=== PATIENT | female | born 1990 | race Caucasian/White ===

== ENCOUNTER 2016-12-15 18:28 | Emergency (ER) | payer BC ==
--- NOTE | 2016-12-15 18:53 | ED ---
- HPI Summary HPI Summary: Patient is 9 weeks 3 days and has a known small abdominal hernia. Yesterday she sneezed and felt a tearing sensation at the hernia. She presents today asking what she can do to prevent the area from tearing more. She called her branch or department chief librarian who recommended altering how she picks up her 30 lb son. She denies noticing obvious swelling when laying down and the small area is easily reduced. There is no discoloration, fever, abdominal pain. - History of Current Complaint Chief Complaint: EDOBProblems Stated Complaint: 9 WEEKS PREG , ABD PAIN Time Seen by Provider: 12/15/16 18:36 Hx Obtained From: Patient Chief Complaint: Other: - hernia Onset/Duration: Started Days Ago, Atraumatic, Still Present Timing: Constant Severity: Mild - when she sneezed Current Severity: None Pain Intensity: 0 Location of Pain: Other: - periumbilical Character: Dull Aggravating Factors: Coughing Alleviating Factors: Other: - bracing Associated Signs and Symptoms: Positive: Negative - Assessment Hx Now: Yes - Unsure. Took Plan B on 07/27/14 - Allergies/Home Medications Allergies/Adverse Reactions: Allergies Allergy/AdvReac Type Severity Reaction Status Date / Time No Known Allergies Allergy Verified 08/02/14 08:23 PMH/Surg Hx/FS Hx/Imm Hx Endocrine/Hematology History: Denies: Hx Diabetes, Hx Thyroid Disease Cardiovascular History: Denies: Hx Hypertension Respiratory History: Reports: Hx Asthma - stress induced as a child Denies: Hx Chronic Obstructive Pulmonary Disease (COPD) GI History: Denies: Hx Ulcer - Surgical History Surgery Procedure, Year, and Place: wisdom teeth extraction Infectious Disease History: Reports: Hx Shingles - had when she was 17 yoa Denies: Hx Clostridium Difficile, Hx Hepatitis, Hx Human Immunodeficiency Virus (HIV), Hx of Known/Suspected MRSA, Hx Tuberculosis, Hx Known/Suspected VRE , Hx Known/Suspected VRSA, History Other Infectious Disease, Traveled Outside the [place] in Last 30 Days - Family History Known Family History: Positive: None - Social History Occupation: Unemployed Lives: With Family Alcohol Use: Occasionally Substance Use Type: Reports: None Smoking Status (MU): Never Smoked Tobacco Review of Systems Negative: Fever Positive: Abdominal Pain - mild discomfort when she sneezed All Other Systems Reviewed And Are Negative: Yes Physical Exam - Physical Exam Triage Information Reviewed: Yes Vital Signs Reviewed: Yes Appearance: Positive: Well-Appearing, No Pain Distress, Well-Nourished Skin: Positive: Warm, Skin Color Reflects Adequate Perfusion, Dry, Soft Head/Face: Positive: Normal Head/Face Inspection Eyes: Positive: EOMI, LEODAN, Conjunctiva Clear ENT: Positive: Hearing grossly normal Respiratory/Lung Sounds: Positive: Breath Sounds Present Cardiovascular: Positive: RRR Abdomen Description: Positive: Nontender - grape sized reducible hernia inferior to the umbilicus, Soft. Negative: CVA Tenderness (R), CVA Tenderness ( L), Distended, Guarding Bowel Sounds: Positive: Present Musculoskeletal: Negative: Edema Left, Edema Right Neurological: Positive: Sensory/Motor Intact, Alert, Oriented to Person Place, Time, NV Bundle Intact Distally, Normal Gait Psychiatric: Positive: Affect/Mood Appropriate AVPU Assessment: Alert Diagnostics - Vital Signs Vital Signs Temp Pulse Resp BP Pulse Ox 12/15/16 18:30 98.9 F 75 15 121/63 100 - Laboratory Lab Statement: Any lab studies that have been ordered have been reviewed, and results considered in the medical decision making process. Course/Dx - Differential Diagnosis/HQI/PQRI: Preeclampsia, Early , Pre-term Labor, Vaginal Bleeding - Diagnoses Provider Diagnoses: Hernia Discharge - Discharge Plan Condition: Stable Disposition: HOME Patient Education Materials: Umbilical Hernia (ED) Referrals: Cierra Cortes MD [Primary Care Provider] - Additional Instructions: Please be in touch with your team for further concerns and follow-up. Return to the emergency department if symptoms worsen.
[2016-12-15 18:56] VITALS: BP 107/67
== END 2016-12-15 18:55 | disposition home or self-care (01) ==
LOC: ED 18:28
DX: O26.91 Pregnancy related conditions, unspecified, first trimester (principal); Z3A.09 9 weeks gestation of pregnancy; K46.9 Unspecified abdominal hernia without obstruction or gangrene; R10.9 Unspecified abdominal pain; R05 Cough
CPT/HCPCS: 99281

== ENCOUNTER 2018-12-26 09:17 | Emergency (ER) | payer BC ==
[2018-12-26 09:59] VITALS: BP 91/62
--- NOTE | 2018-12-26 10:08 | UC ---
Throat Pain/Nasal Herminio HPI - HPI Summary HPI Summary: sore throat x 1 week no cough , no nasal congestion , right side ear pain swollen neck glands no fever, + chills, body aches, fatigue concern about [place] - History of Current Complaint Chief Complaint: UCRespiratory Stated Complaint: THROAT,BODYACHES,TIRED Time Seen by Provider: 12/26/18 10:00 Hx Obtained From: Patient Hx Last Menstrual Period: prior to childbirth- 15 months ago ?: No Onset/Duration: Gradual Onset, Lasting Days - 7, Still Present Severity: Moderate Pain Intensity: 4 Cough: None Associated Signs & Symptoms: Negative: Dysphagia, FB Sensation, Drooling, Wheezing, Hoarseness, Sinus Discomfort, Nasal Discharge, Fever, Vomiting, Rash - Allergies/Home Medications Allergies/Adverse Reactions: Allergies Allergy/AdvReac Type Severity Reaction Status Date / Time morphine AdvReac "JITTERY, Verified 12/26/18 09:52 AND MUSCLES TENSE" Home Medications: Home Medications Ibuprofen TAB* [Advil TAB*] 400 mg PO Q6H PRN 12/26/18 [History Confirmed ] PMH/Surg Hx/FS Hx/Imm Hx Previously Healthy: Yes - Surgical History Surgical History: Yes Surgery Procedure, Year, and Place: wisdom teeth extraction - Family History Known Family History: Positive: None Negative: Diabetes - Social History Alcohol Use: Rare Substance Use Type: None Smoking Status (MU): Never Smoked Tobacco Review of Systems All Other Systems Reviewed And Are Negative: Yes Constitutional: Positive: Chills, Fatigue Skin: Positive: Negative Eyes: Positive: Negative ENT: Positive: Sore Throat. Negative: Nasal Discharge Respiratory: Negative: Cough Cardiovascular: Positive: Negative Is Patient Immunocompromised?: No Physical Exam Triage Information Reviewed: Yes Appearance: Well-Appearing, No Pain Distress, Well-Nourished Vital Signs: Initial Vital Signs Temp 98.1 F 12/26/18 09:53 Pulse 83 12/26/18 09:53 Resp 16 12/26/18 09:53 BP 91/62 12/26/18 09:53 Pulse Ox 100 12/26/18 09:53 Vital Signs Reviewed: Yes Eye Exam: Normal Eyes: Positive: Conjunctiva Clear ENT: Positive: Normal ENT inspection, Hearing grossly normal, Pharynx normal Neck: Positive: Supple, Nontender, No Lymphadenopathy Respiratory: Positive: Chest non-tender, Lungs clear, Normal breath sounds Cardiovascular: Positive: RRR, No Murmur, Pulses Normal Abdominal Exam: Normal Abdomen Description: Positive: Nontender, No Organomegaly, Soft. Negative: CVA Tenderness (R), CVA Tenderness (L), Distended, Guarding Skin Exam: Normal Throat Pain/Nasal Course/Dx - Differential Dx/Diagnosis Provider Diagnosis: Pharyngitis Discharge - Sign-Out/Discharge Documenting (check all that apply): Patient Departure All imaging exams completed and their final reports reviewed: No Studies - Discharge Plan Condition: Stable Disposition: HOME Patient Education Materials: Pharyngitis (ED) Referrals: Kalie Kelly DO [Primary Care Provider] - 7 Days Additional Instructions: will check for mono please call the office in one day for the results - Billing Disposition and Condition Condition: STABLE Disposition: Home
[2018-12-27 10:45] LABS: EBV Capsid Ag IgG Ab Positive (Negative); EBV Capsid Ag IgM Ab Negative (Negative); Epstein-Barr Nuclear Antigen Positive (Negative)
== END 2018-12-26 10:40 | disposition home or self-care (01) ==
LOC: UCCORT 09:17
DX: J02.9 Acute pharyngitis, unspecified (principal); Z88.5 Allergy status to narcotic agent
CPT/HCPCS: 36415; 86308; 86664; 86665; 87651; 99211; G0463

== ENCOUNTER 2019-10-27 16:49 | Emergency (ER) | payer BC ==
[2019-10-27 18:17] LABS: ABS Basophils 0.1 10^3/ul (0-0.2); ABS Eosinophils 0.1 10^3/ul (0-0.6); ABS Lymphocytes 1.7 10^3/ul (1.0-4.8); ABS Monocytes 0.6 10^3/ul (0-0.8); ABS Neutrophils 6.2 10^3/ul (1.5-7.7); Eosinophil % 0.7 %; Hematocrit 36 % (35-47); Hemoglobin 12.3 g/dL (12.0-16.0); Lymphocyte % 19.8 %; Mean Corpuscular HGB Conc 34 g/dL (31-36); Mean Corpuscular Hemoglobin 30 pg (27-31); Mean Corpuscular Volume 88 fL (80-97); Mean Platelet Volume 7.9 fL (7.4-10.4); Platelet Count 351 10^3/uL (150-450); Red Blood Count 4.12 10^6 /uL (3.70-4.87); Red Cell Distribution Width 14 % (10-15); White Blood Count 8.7 10^3/uL (3.5-10.8)
[2019-10-27 18:33] LABS: ALT 12 U/L (7-52); AST 15 U/L (13-39); Albumin 4.5 g/dL (3.2-5.2); Albumin/Globulin Ratio 1.6 (1-3); Alkaline Phosphatase 53 U/L (34-104); Anion Gap 8 mmol/L (2-11); BUN/Creatinine Ratio 17.5 (8-20); Blood Urea Nitrogen 14 mg/dL (6-24); CO2 Carbon Dioxide 25 mmol/L (22-32); Calcium 9.3 mg/dL (8.6-10.3); Chloride 104 mmol/L (101-111); EGFR African American 103.3 (>60); EGFR Non-African American 85.4 (>60); Globulin 2.8 g/dL (2-4); Glucose 95 mg/dL (70-100); Potassium 4.3 mmol/L (3.5-5.0); Sodium 137 mmol/L (135-145); Total Protein 7.3 g/dL (6.4-8.9)
[2019-10-27 19:08] LABS: Urine Appearance Clear; Urine Bilirubin Negative (Negative); Urine Blood 1+ (Negative); Urine Color Yellow; Urine Glucose Negative (Negative); Urine Ketones Trace (Negative); Urine Nitrite Negative (Negative); Urine Protein Negative (Negative); Urine Specific Gravity 1.008 (1.010-1.030); Urine Urobilinogen Negative (Negative)
[2019-10-27 19:11] LABS: Urine Bacteria Absent (Absent); Urine Red Blood Cell Trace(0-2/hpf) (Absent); Urine Squamous Epithelial Cell Present (Absent); Urine White Blood Cell Absent (Absent)
[2019-10-27 20:37] LABS: HCG Pregnancy < 0.60 mIU/mL
--- NOTE | 2019-10-27 20:51 | ED ---
Abdominal Pain/Female - HPI Summary HPI Summary: The patient is a 29 y/o F presenting to [facility] with cc of right-sided abdominal pain onset yesterday and worsening into today. She reports that she has been experiencing nausea for the last week. On 10/23/2019 into 10/24/2019, she began having vaginal bleeding with two large menstrual cups overflowing in less than 40 minutes, which continued for a few hours but has since improved with normal blood flow. Yesterday, she developed dull abdominal pain in the right side worst in the RUQ, which has continued and worsened today with bloating. She additionally c/o dark brown stools without blood. She denies fevers or chills. Symptoms rated 6/10 in severity. She notes that she has suffered from severe menstrual cycles throughout her life, and she occasionally has accompanying GI symptoms. Not currently . No abdominal surgeries. Noted umbilical hernia feeling slightly different than usual but not significantly abnormal. PMHx: two vaginal births, asthma. Nonsmoker, rare EtOH, no substance use. Medications reviewed. Allergies noted. Home Medications Medication Instructions Recorded Confirmed Type Sertraline* [Zoloft*] 100 mg PO QAM 04/16/18 10/27/19 History Ibuprofen TAB* [Advil TAB*] 400 mg PO Q6H PRN 12/26/18 10/27/19 History Multivitamins/Minerals TAB* [Thera 1 tab PO DAILY 10/27/19 10/27/19 History M Plus TAB*] - History of Current Complaint Chief Complaint: EDAbdPain Stated Complaint: ABD PAIN/DARK STOOL PER PT Time Seen by Provider: 10/27/19 20:05 Hx Obtained From: Patient Hx Last Menstrual Period: prior to childbirth- 15 months ago ?: No - tested four days ago Onset/Duration: Lasting Hours, Still Present Timing: Constant Severity Initially: Mild Severity Currently: Moderate Pain Intensity: 6 Pain Scale Used: 0-10 Numeric Location: Discrete At: RUQ Radiates: No Character: Sharp, Dull Aggravating Factor(s): Nothing Alleviating Factor(s): Nothing Associated Signs and Symptoms: Positive: Vaginal Bleeding - hemorrhaging 2019 with improvement, Nausea, Diarrhea - dark, brown tarry, Other: - abdominal bloating; Negative: chills. Negative: Fever, Blood in Stool Allergies/Adverse Reactions: Allergies Allergy/AdvReac Type Severity Reaction Status Date / Time morphine AdvReac "JITTERY, Verified 12/26/18 09:52 AND MUSCLES TENSE" Home Medications: Home Medications Sertraline* [Zoloft*] 100 mg PO QAM 04/16/18 [History Confirmed 10/27/19] Ibuprofen TAB* [Advil TAB*] 400 mg PO Q6H PRN 12/26/18 [History Confirmed ] Multivitamins/Minerals TAB* [Thera M Plus TAB*] 1 tab PO DAILY 10/27/19 [ History Confirmed 10/27/19] PMH/Surg Hx/FS Hx/Imm Hx Endocrine/Hematology History: Denies: Hx Diabetes, Hx Thyroid Disease Cardiovascular History: Denies: Hx Hypertension, Hx Pacemaker/ICD Respiratory History: Reports: Hx Asthma - stress induced as a child Denies: Hx Chronic Obstructive Pulmonary Disease (COPD) GI History: Reports: Hx Irritable Bowel Denies: Hx Ulcer Sensory History: Reports: Hx Contacts or Glasses - READING GLASSES Denies: Hx Hearing Aid Opthamlomology History: Reports: Hx Contacts or Glasses - READING GLASSES Psychiatric History: Reports: Hx Anxiety - ON MEDICATION FOR, Hx Depression - ON MEDICATION FOR - Surgical History Surgical History: Yes Surgery Procedure, Year, and Place: wisdom teeth extraction Hx Anesthesia Reactions: No Infectious Disease History: No Infectious Disease History: Reports: Hx Shingles - had when she was 17 yoa Denies: Hx Clostridium Difficile, Hx Hepatitis, Hx Human Immunodeficiency Virus (HIV), Hx of Known/Suspected MRSA, Hx Tuberculosis, Hx Known/Suspected VRE , Hx Known/Suspected VRSA, History Other Infectious Disease, Traveled Outside the [place] in Last 30 Days - Family History Known Family History: Negative: Cardiac Disease, Hypertension, Diabetes - Social History Alcohol Use: Rare Hx Substance Use: No Substance Use Type: Reports: None Hx Tobacco Use: No Smoking Status (MU): Never Smoked Tobacco Review of Systems Negative: Fever, Chills Positive: Abdominal Pain - right side worst in upper, Diarrhea, Nausea, Other - abdominal bloating, dark brown tarry stools; Negative: blood in stool All Other Systems Reviewed And Are Negative: Yes Physical Exam - Summary Physical Exam Summary: Constitutional: Well-developed, Well-nourished, Alert. (-) Distressed Skin: Warm, Dry HENT: Normocephalic; Atraumatic Eyes: Conjunctiva normal Neck: Musculoskeletal ROM normal neck. (-) JVD, (-) Stridor, (-) Nuchal rigidity Cardio: Rhythm regular, rate normal, Heart sounds normal; Intact distal pulses; Radial pulses are 2+ and symmetric. (-) Murmur Pulmonary/Chest wall: Effort normal. (-) Respiratory distress, (-) Wheezes, (-) Rales Abd: Soft, (+) RUQ tenderness, (-) Distension, (-) Guarding, (-) Rebound Musculoskeletal: (-) Edema Lymph: (-) Cervical adenopathy Neuro: Alert, Oriented x3 Psych: Mood and affect Normal Triage Information Reviewed: Yes Vital Signs On Initial Exam: Initial Vitals Temp Pulse Resp BP Pulse Ox 97.8 F 67 18 147/84 98 10/27/19 16:50 10/27/19 16:50 10/27/19 16:50 10/27/19 16:50 10/27/19 16:50 Vital Signs Reviewed: Yes Procedures - Sedation Patient Received Moderate/Deep Sedation with Procedure: No Diagnostics - Vital Signs Vital Signs Temp Pulse Resp BP Pulse Ox 10/27/19 18:39 99.6 F 82 18 105/81 98 10/27/19 16:50 97.8 F 67 18 147/84 98 - Laboratory Lab Results: Lab Results 10/27/19 10/27/19 10/27/19 Range/Units 18:09 18:09 18:50 WBC 8.7 (3.5-10.8) 10^3/uL RBC 4.12 (3.70-4.87) 10^6 /uL Hgb 12.3 (12.0-16.0) g/dL Hct 36 (35-47) % MCV 88 (80-97) fL MCH 30 (27-31) pg MCHC 34 (31-36) g/dL RDW 14 (10-15) % Plt Count 351 (150-450) 10^3/uL MPV 7.9 (7.4-10.4) fL Neut % (Auto) 72.0 % Lymph % (Auto) 19.8 % Stephens % (Auto) 6.8 % Eos % (Auto) 0.7 % Baso % (Auto) 0.7 % Absolute Neuts (auto) 6.2 (1.5-7.7) 10^3/ul Absolute Lymphs (auto) 1.7 (1.0-4.8) 10^3/ul Absolute Monos (auto) 0.6 (0-0.8) 10^3/ul Absolute Eos (auto) 0.1 (0-0.6) 10^3/ul Absolute Basos (auto) 0.1 (0-0.2) 10^3/ul Absolute Nucleated RBC 0.0 10^3/ul Nucleated RBC % 0.0 Sodium 137 (135-145) mmol/L Potassium 4.3 (3.5-5.0) mmol/L Chloride 104 (101-111) mmol/L Carbon Dioxide 25 (22-32) mmol/L Anion Gap 8 (2-11) mmol/L BUN 14 (6-24) mg/dL Creatinine 0.80 (0.51-0.95) mg/dL Est GFR ( Amer) 103.3 (>60) Est GFR (Non-Af Amer) 85.4 (>60) BUN/Creatinine Ratio 17.5 (8-20) Glucose 95 (70-100) mg/dL Calcium 9.3 (8.6-10.3) mg/dL Total Bilirubin 0.30 (0.2-1.0) mg/dL AST 15 (13-39) U/L ALT 12 (7-52) U/L Alkaline Phosphatase 53 (34-104) U/L Total Protein 7.3 (6.4-8.9) g/dL Albumin 4.5 (3.2-5.2) g/dL Globulin 2.8 (2-4) g/dL Albumin/Globulin Ratio 1.6 (1-3) Beta HCG, Quant < 0.60 mIU/mL Urine Color Yellow Urine Appearance Clear Urine pH 7.0 (5-9) Ur Specific [place] 1.008 L (1.010-1.030) Urine Protein Negative (Negative) Urine Ketones Trace A (Negative) Urine Blood 1+ A (Negative) Urine Nitrate Negative (Negative) Urine Bilirubin Negative (Negative) Urine Urobilinogen Negative (Negative) Ur Leukocyte Esterase Negative (Negative) Urine WBC (Auto) Absent (Absent) Urine RBC (Auto) Trace(0-2/hpf) (Absent) Ur Squamous Epith Cells Present A (Absent) Urine Bacteria Absent (Absent) Urine Glucose Negative (Negative) Result Diagrams: 10/27/19 18:09 10/27/19 18:09 Lab Statement: Any lab studies that have been ordered have been reviewed, and results considered in the medical decision making process. Abdominal Pain Fem Course/Dx - Course Course Of Treatment: 29 y/o F p/w RUQ pain/ R sided abd pain. - patient reports pain w menses and this could be related to that as she is currently on cycle. Hb stable (had reported heavy bleeding earlier, now resolved). LFTs and bili WNL. No e/o infection on labwork. Denies blood in stool. Preg neg. D/w patient US RUQ for biliary pathology although given normal LFTs/bili and lack of typical biliary colic symptoms, my suspicion is lower. Will sign out to Dr. Ohara pending images. - Diagnoses Provider Diagnoses: RUQ abdominal pain, Nausea Discharge ED - Sign-Out/Discharge Documenting (check all that apply): Sign-Out Patient Signing out patient TO: Cora Ohara - Patient is a sign-out to Dr. Cora Ohara MD, at 2200 on 10/27/2019, pending Gallbladder US and disposition. - Discharge Plan Condition: Stable Disposition: HOME Patient Education Materials: Acute Abdominal Pain (ED) Referrals: Kalie Kelly DO [Primary Care Provider] - Additional Instructions: You were seen in the emergency department for sided abdominal pain, your labs did not show any evidence of infection. If any studies were not completed at the time of discharge you will be called with the relevant results. Please follow up with your primary care doctor in the next 2-3 days and return to the emergency department for worsening pain, fevers, or concerning symptoms. It was a pleasure taking care of you today. - Billing Disposition and Condition Condition: STABLE Disposition: Home - Attestation Statements Document Initiated by Zack: Yes Documenting Scribe: Evita Diaz Provider For Whom Zack is Documenting (Include Credential): Dr. Bam Cadet MD Scribe Attestation: Evita Avery scribed for Dr. Bam Cadet MD on 10/29/19 at 1052. Scribe Documentation Reviewed: Yes Provider Attestation: The documentation as recorded by the scribe, Evita Diaz accurately reflects the service I personally performed and the decisions made by me, Dr. Bam Cadet MD Status of Zack Document: Viewed
--- NOTE | 2019-10-27 22:26 | ED ---
Progress - Progress Note Progress Note: Pt is a signout from Dr. Cadet at 2200 on 10/27/19 pending ultrasound of her abdomen. - Results/Orders Results/Orders: Abdominal ultrasound: No acute findings. No shadowing gallstones. ED physician has reviewed this report. Course/Dx - Diagnoses Provider Diagnoses: RUQ abdominal pain, Nausea Discharge ED - Sign-Out/Discharge Documenting (check all that apply): Patient Departure, Receiving Sign-Out Receiving patient FROM: Bam Cadet - Discharge Plan Condition: Stable Disposition: HOME Patient Education Materials: Acute Abdominal Pain (ED) Referrals: Kalie Kelly DO [Primary Care Provider] - Additional Instructions: You were seen in the emergency department for sided abdominal pain, your labs did not show any evidence of infection. If any studies were not completed at the time of discharge you will be called with the relevant results. Please follow up with your primary care doctor in the next 2-3 days and return to the emergency department for worsening pain, fevers, or concerning symptoms. It was a pleasure taking care of you today. - Billing Disposition and Condition Condition: STABLE Disposition: Home - Attestation Statements Document Initiated by Scribe: Yes Documenting Scribe: Latoya Sommer Provider For Whom Scribe is Documenting (Include Credential): Cora Ohara MD. Scribe Attestation: Latoya Avery, marzenaed for Cora Ohara MD. on 10/28/19 at 0000. Scribe Documentation Reviewed: Yes Provider Attestation: The documentation as recorded by the scribeLatoya accurately reflects the service I personally performed and the decisions made by Cora aviles MD. Status of Scribe Document: Viewed
[2019-10-27 22:41] VITALS: BP 112/82
== END 2019-10-27 22:42 | disposition home or self-care (01) ==
LOC: ED 16:49
DX: R10.11 Right upper quadrant pain (principal); R11.0 Nausea; F41.9 Anxiety disorder, unspecified; F32.9 Major depressive disorder, single episode, unspecified; Z79.899 Other long term (current) drug therapy; Z88.5 Allergy status to narcotic agent
CPT/HCPCS: 36415; 76705; 80053; 81003; 81015; 84702; 85025; 99282